=== PATIENT | male | born 1960 | race African-American/Black ===

== ENCOUNTER 2022-11-03 13:14 | Emergency (ER) | payer MEDICAID, MEDICARE ==
[~2022-11-03] VITALS: Ht 170.2 cm; Wt 99.8 kg
[2022-11-03 13:35] VITALS: BP 156/92
--- NOTE | 2022-11-03 14:15 | NUR ---
pt seen by dr hunter for eval
--- NOTE | 2022-11-03 14:43 | NUR ---
[facility] CALLED FOR TRANSPORT, ETA 60 MIN PER SHAE.
--- NOTE | 2022-11-03 15:35 | NUR ---
[facility] [place] TELEPHONE NUMBER [phone]
--- NOTE | 2022-11-03 15:40 | NUR ---
called ariella bob for report but no response
--- NOTE | 2022-11-03 15:48 | NUR ---
Patient discharged to [facility] via [place] in stable condition, accompanied by 2 foundry metallurgist. Written and verbal after care instructions given. Patient verbalizes understanding of instruction.
== END 2022-11-03 15:50 ==
LOC: ER 13:18
DX: H57.89 Other specified disorders of eye and adnexa (principal); I10 Essential (primary) hypertension; J44.9 Chronic obstructive pulmonary disease, unspecified; F20.9 Schizophrenia, unspecified; F31.9 Bipolar disorder, unspecified; E78.5 Hyperlipidemia, unspecified; Z88.0 Allergy status to penicillin

== ENCOUNTER 2023-08-12 04:15 | Inpatient (IN) | payer MEDICARE, OTHER ==
[2023-08-12] VITALS (11 sets, daily range): BP systolic 102–158; BP diastolic 67–95; TEMP 97.9–98.8; O2SAT 88–100
[~2023-08-12] VITALS: Ht 170.2 cm; Wt 107.5 kg
[2023-08-12] MEDS ORDERED: ALBUTEROL FS 2.5 MG/0.5 ML VIAL.NEB ONE (04:49)
[2023-08-12] MEDS ORDERED: ALBUTEROL FS 2.5 MG/0.5 ML VIAL.NEB NEB ONE (05:00)
[2023-08-12] MEDS ORDERED: ALBUTEROL FS 2.5 MG/0.5 ML VIAL.NEB NEB PRN (08:30)
[2023-08-12] MEDS ORDERED: MORPHINE SULFATE INJ 2 MG/ML DISP.SYRIN IV PRN (08:30)
[2023-08-12] MEDS ORDERED: ACETAMINOPHEN 325 MG TABLET PO PRN (08:30)
[2023-08-12] MEDS ORDERED: ONDANSETRON HCL/PF 4 MG/2 ML VIAL IVP PRN (08:30)
[2023-08-12] MEDS ORDERED: GLUC1KIT IM (08:47)
[2023-08-12] MEDS ORDERED: MULT-447 PO (08:47)
[2023-08-12] MEDS ORDERED: IPRA0.2S9 INH (08:47)
[2023-08-12] MEDS ORDERED: BENA20TA9 PO (08:47)
[2023-08-12] MEDS ORDERED: AMLO-213 PO (08:47)
[2023-08-12] MEDS ORDERED: FLUT16SP16 (08:47)
[2023-08-12] MEDS ORDERED: ALBU18HF2 INH (08:47)
[2023-08-12] MEDS ORDERED: AMAN100C16 PO (08:47)
[2023-08-12] MEDS ORDERED: METF-440 PO (08:47)
[2023-08-12] MEDS ORDERED: ATOR10TA PO (08:47)
[2023-08-12] MEDS ORDERED: HYDR-4076 PO (08:47)
[2023-08-12] MEDS ORDERED: FLUP10TA12 PO (08:47)
[2023-08-12] MEDS ORDERED: POLY15DR40 RIGHTEYE (08:47)
[2023-08-12 09:24] LABS: BASOPHILS % (AUTO) 0.2 % (0.0-2.0); EOSINOPHILS # (AUTO) 0.2 K/uL (0.0-0.7); HEMATOCRIT 44 % (39-51); HEMOGLOBIN 13.4 g/dL (13.5-17.5); LYMPHOCYTES # (AUTO) 1.1 K/uL (0.8-4.8); LYMPHOCYTES % (AUTO) 16.4 % (20.0-44.0); MEAN CORPUSCULAR HEMOGLOBIN 24 PG (26.0-33.0); MEAN CORPUSCULAR HGB CONC 31 g/dl (31.0-36.0); MEAN CORPUSCULAR VOLUME 78 fL (80-96); MONOCYTES # (AUTO) 0.4 K/uL (0.1-1.30); MONOCYTES % (AUTO) 5.5 % (2.0-12.0); NEUTROPHILS % (AUTO) 74.9 % (43.0-81.0); PLATELET COUNT (AUTO) 168 K/uL (150-450); RED BLOOD CELL COUNT(AUTO) 5.57 MIL/uL (4.5-6.0); RED CELL DISTRIBUTION WIDTH 20.1 % (11.5-15.0); WHITE BLOOD COUNT (AUTO) 6.6 K/uL (4.3-11.0)
[2023-08-12 09:47] LABS: ALANINE AMINOTRANSFERASE 20 U/L (12-78); ALBUMIN 3.6 g/dL (3.4-5.0); ALKALINE PHOSPHATASE 79 U/L (46-116); ASPARTATE AMINOTRANSFERASE 14 U/L (15-37); BILIRUBIN,TOTAL 0.2 mg/dL (0.2-1.0); CALCIUM, SERUM 8.7 mg/dL (8.5-10.1); CARBON DIOXIDE 36 mmol/L (21-32); CREATININE 1.2 mg/dL (0.6-1.3); GLUCOSE 140 mg/dL (74-106); TOTAL PROTEIN, SERUM 7.3 g/dL (6.4-8.2); UREA NITROGEN, BLOOD 18 mg/dL (7-18)
[2023-08-12] MEDS ORDERED: MINE3.5O RIGHTEYE (09:57)
[2023-08-12] MEDS ORDERED: OLAN10TA3 PO (09:57)
[2023-08-12] MEDS: methylPREDNISolone SOD SUCC 40 MG/ML VIAL IV SCH ×2 (10:25→15:32)
[2023-08-12] MEDS ORDERED: DEXTROSE 50%-WATER 50 ML DISP.SYRIN IV PRN (10:30)
[2023-08-12] MEDS ORDERED: IPRATROPIUM NEB FS 0.5 MG/2.5 ML AMPUL.NEB ONE (10:39)
[2023-08-12] MEDS: ALBUTEROL FS 2.5 MG/0.5 ML VIAL.NEB NEB SCH ×2 (10:43→20:13)
[2023-08-12] MEDS: IPRATROPIUM NEB FS 0.5 MG/2.5 ML AMPUL.NEB NEB SCH ×2 (10:43→20:13)
[2023-08-12 10:45] LABS: CHLORIDE 103 mmol/L (98-107); SODIUM SERUM 143 mmol/L (136-145)
[2023-08-12] MEDS: BLOOD SUGAR DIAGNOSTIC 1 EACH STRIP IN SCH ×3 (11:08→21:32)
[2023-08-12] MEDS: ENOXAPARIN SODIUM 40 MG/0.4 ML DISP.SYRIN SQ SCH (11:13)
[2023-08-12] MEDS ORDERED: IPRATROPIUM/ALBUTEROL INHALER IH SCH (12:00)
[2023-08-12] MEDS: INSULIN REGULAR, HUMAN 100 UNIT/ML 3 ML VIAL SQ PRN ×3 (13:42→21:37)
[2023-08-12] MEDS: hydrALAZINE HCL 25 MG TABLET PO SCH ×2 (13:50→16:37)
[2023-08-12] MEDS: GUAIFENESIN/D-METHORPHAN HB 5 ML UDC PO PRN ×2 (15:32→23:04)
[2023-08-12] MEDS: BENAZEPRIL HCL 20 MG TABLET PO SCH (16:37)
[2023-08-12] MEDS: FLUPHENAZINE HCL 10 MG TABLET PO SCH (21:30)
[2023-08-12] MEDS: AMANTADINE HCL 100 MG CAPSULE PO SCH (21:30)
[2023-08-12] MEDS: ATORVASTATIN 10 MG TABLET PO SCH (21:30)
[2023-08-12] MEDS: OLANZAPINE 10 MG TABLET PO SCH (21:30)
[2023-08-13] VITALS (14 sets, daily range): BP systolic 142–157; BP diastolic 76–89; TEMP 97.6–98.6; O2SAT 89–95
[2023-08-13] MEDS: methylPREDNISolone SOD SUCC 40 MG/ML VIAL IV SCH ×4 (00:28→21:19)
[2023-08-13] MEDS: ALBUTEROL FS 2.5 MG/0.5 ML VIAL.NEB NEB SCH ×4 (01:07→19:34)
[2023-08-13] MEDS: IPRATROPIUM NEB FS 0.5 MG/2.5 ML AMPUL.NEB NEB SCH ×4 (01:07→19:34)
[2023-08-13] MEDS: GUAIFENESIN/D-METHORPHAN HB 5 ML UDC PO PRN (05:43)
[2023-08-13 05:46] LABS: BASOPHILS % (AUTO) 0.1 % (0.0-2.0); HEMATOCRIT 47 % (39-51); HEMOGLOBIN 14.1 g/dL (13.5-17.5); LYMPHOCYTES # (AUTO) 0.8 K/uL (0.8-4.8); LYMPHOCYTES % (AUTO) 7.6 % (20.0-44.0); MEAN CORPUSCULAR HEMOGLOBIN 24 PG (26.0-33.0); MEAN CORPUSCULAR HGB CONC 30 g/dl (31.0-36.0); MEAN CORPUSCULAR VOLUME 78 fL (80-96); MONOCYTES # (AUTO) 0.3 K/uL (0.1-1.30); NEUTROPHILS # (AUTO) 9.7 K/uL (1.8-8.9); NEUTROPHILS % (AUTO) 89.3 % (43.0-81.0); PLATELET COUNT (AUTO) 186 K/uL (150-450); RED BLOOD CELL COUNT(AUTO) 5.93 MIL/uL (4.5-6.0); RED CELL DISTRIBUTION WIDTH 19.8 % (11.5-15.0); WHITE BLOOD COUNT (AUTO) 10.9 K/uL (4.3-11.0)
[2023-08-13 06:41] LABS: ALBUMIN 3.4 g/dL (3.4-5.0); BILIRUBIN,TOTAL 0.2 mg/dL (0.2-1.0); CALCIUM, SERUM 9.8 mg/dL (8.5-10.1); CREATININE 1.4 mg/dL (0.6-1.3); MAGNESIUM 2.2 mg/dL (1.8-2.4); PHOSPHORUS 2.9 mg/dL (2.5-4.9); TOTAL PROTEIN, SERUM 7.5 g/dL (6.4-8.2)
[2023-08-13] MEDS: BLOOD SUGAR DIAGNOSTIC 1 EACH STRIP IN SCH ×4 (06:53→22:09)
[2023-08-13] MEDS: INSULIN REGULAR, HUMAN 100 UNIT/ML 3 ML VIAL SQ PRN ×4 (06:54→22:12)
[2023-08-13 07:38] LABS: POTASSIUM 4.5 mmol/L (3.5-5.1)
[2023-08-13] MEDS: AMLODIPINE BESYLATE 10 MG TABLET PO SCH (08:25)
[2023-08-13] MEDS: hydrALAZINE HCL 25 MG TABLET PO SCH ×3 (08:25→17:43)
[2023-08-13] MEDS: BENAZEPRIL HCL 20 MG TABLET PO SCH ×2 (08:27→17:43)
[2023-08-13] MEDS: ENOXAPARIN SODIUM 40 MG/0.4 ML DISP.SYRIN SQ SCH (08:28)
[2023-08-13] MEDS: ATORVASTATIN 10 MG TABLET PO SCH (21:19)
[2023-08-13] MEDS: AMANTADINE HCL 100 MG CAPSULE PO SCH (21:22)
[2023-08-13] MEDS: OLANZAPINE 10 MG TABLET PO SCH (21:22)
[2023-08-13] MEDS: FLUPHENAZINE HCL 10 MG TABLET PO SCH (21:23)
[2023-08-14] VITALS (13 sets, daily range): BP systolic 134–156; BP diastolic 80–93; TEMP 97.3–98.4; O2SAT 88–99
[2023-08-14] MEDS: ALBUTEROL FS 2.5 MG/0.5 ML VIAL.NEB NEB SCH ×4 (01:29→19:53)
[2023-08-14] MEDS: IPRATROPIUM NEB FS 0.5 MG/2.5 ML AMPUL.NEB NEB SCH ×4 (01:29→19:53)
[2023-08-14] MEDS: methylPREDNISolone SOD SUCC 40 MG/ML VIAL IV SCH ×4 (03:35→19:05)
[2023-08-14 06:04] LABS: HEMATOCRIT 45 % (39-51); HEMOGLOBIN 13.6 g/dL (13.5-17.5); LYMPHOCYTES # (AUTO) 0.8 K/uL (0.8-4.8); LYMPHOCYTES % (AUTO) 5.6 % (20.0-44.0); MEAN CORPUSCULAR HEMOGLOBIN 24 PG (26.0-33.0); MEAN CORPUSCULAR HGB CONC 30 g/dl (31.0-36.0); MEAN CORPUSCULAR VOLUME 78 fL (80-96); MONOCYTES # (AUTO) 0.6 K/uL (0.1-1.30); NEUTROPHILS # (AUTO) 12.9 K/uL (1.8-8.9); NEUTROPHILS % (AUTO) 90.4 % (43.0-81.0); PLATELET COUNT (AUTO) 185 K/uL (150-450); RED BLOOD CELL COUNT(AUTO) 5.74 MIL/uL (4.5-6.0); RED CELL DISTRIBUTION WIDTH 19.8 % (11.5-15.0); WHITE BLOOD COUNT (AUTO) 14.3 K/uL (4.3-11.0)
[2023-08-14 06:23] LABS: CALCIUM, SERUM 9.2 mg/dL (8.5-10.1); CREATININE 1.2 mg/dL (0.6-1.3); MAGNESIUM 2.4 mg/dL (1.8-2.4); PHOSPHORUS 3.9 mg/dL (2.5-4.9); POTASSIUM 4.8 mmol/L (3.5-5.1)
[2023-08-14] MEDS: GUAIFENESIN/D-METHORPHAN HB 5 ML UDC PO PRN (06:45)
[2023-08-14] MEDS: BLOOD SUGAR DIAGNOSTIC 1 EACH STRIP IN SCH ×4 (06:45→22:05)
[2023-08-14] MEDS: INSULIN REGULAR, HUMAN 100 UNIT/ML 3 ML VIAL SQ PRN ×4 (06:49→22:08)
[2023-08-14] MEDS: BENAZEPRIL HCL 20 MG TABLET PO SCH ×2 (09:58→17:46)
[2023-08-14] MEDS: hydrALAZINE HCL 25 MG TABLET PO SCH ×3 (09:58→17:46)
[2023-08-14] MEDS: AMLODIPINE BESYLATE 10 MG TABLET PO SCH (09:59)
[2023-08-14] MEDS: ENOXAPARIN SODIUM 40 MG/0.4 ML DISP.SYRIN SQ SCH (10:01)
[2023-08-14] MEDS: AMANTADINE HCL 100 MG CAPSULE PO SCH (21:57)
[2023-08-14] MEDS: OLANZAPINE 10 MG TABLET PO SCH (21:57)
[2023-08-14] MEDS: ATORVASTATIN 10 MG TABLET PO SCH (21:57)
[2023-08-14] MEDS: FLUPHENAZINE HCL 10 MG TABLET PO SCH (21:57)
[2023-08-15] VITALS (12 sets, daily range): BP systolic 136–170; BP diastolic 56–102; TEMP 97.5–98.2; O2SAT 88–98
[2023-08-15] MEDS: ALBUTEROL FS 2.5 MG/0.5 ML VIAL.NEB NEB SCH ×4 (01:30→20:10)
[2023-08-15] MEDS: IPRATROPIUM NEB FS 0.5 MG/2.5 ML AMPUL.NEB NEB SCH ×4 (01:30→20:10)
[2023-08-15] MEDS: methylPREDNISolone SOD SUCC 40 MG/ML VIAL IV SCH ×3 (02:39→19:31)
[2023-08-15] MEDS: BLOOD SUGAR DIAGNOSTIC 1 EACH STRIP IN SCH ×5 (06:32→21:46)
[2023-08-15] MEDS: INSULIN REGULAR, HUMAN 100 UNIT/ML 3 ML VIAL SQ PRN ×5 (06:38→21:49)
[2023-08-15] MEDS: BENAZEPRIL HCL 20 MG TABLET PO SCH ×2 (09:20→17:45)
[2023-08-15] MEDS: hydrALAZINE HCL 25 MG TABLET PO SCH ×3 (09:20→16:02)
[2023-08-15] MEDS: AMLODIPINE BESYLATE 10 MG TABLET PO SCH (09:20)
[2023-08-15] MEDS: ENOXAPARIN SODIUM 40 MG/0.4 ML DISP.SYRIN SQ SCH (09:21)
[2023-08-15] MEDS: LEVOFLOXACIN (250MG) 250 MG TABLET PO SCH (13:14)
[2023-08-15] MEDS: ATORVASTATIN 10 MG TABLET PO SCH (21:38)
[2023-08-15] MEDS: FLUPHENAZINE HCL 10 MG TABLET PO SCH (21:38)
[2023-08-15] MEDS: OLANZAPINE 10 MG TABLET PO SCH (21:38)
[2023-08-15] MEDS: AMANTADINE HCL 100 MG CAPSULE PO SCH (21:38)
[2023-08-16] VITALS (12 sets, daily range): BP systolic 137–158; BP diastolic 73–96; TEMP 97–99.9; O2SAT 89–97
[2023-08-16] MEDS: ALBUTEROL FS 2.5 MG/0.5 ML VIAL.NEB NEB SCH ×3 (02:06→12:36)
[2023-08-16] MEDS: IPRATROPIUM NEB FS 0.5 MG/2.5 ML AMPUL.NEB NEB SCH ×3 (02:06→12:36)
[2023-08-16] MEDS: methylPREDNISolone SOD SUCC 40 MG/ML VIAL IV SCH (02:54)
[2023-08-16] MEDS: BLOOD SUGAR DIAGNOSTIC 1 EACH STRIP IN SCH ×3 (06:41→17:11)
[2023-08-16] MEDS: INSULIN REGULAR, HUMAN 100 UNIT/ML 3 ML VIAL SQ PRN ×3 (06:42→17:13)
[2023-08-16] MEDS: BENAZEPRIL HCL 20 MG TABLET PO SCH ×2 (08:22→17:11)
[2023-08-16] MEDS: hydrALAZINE HCL 25 MG TABLET PO SCH ×3 (08:22→17:11)
[2023-08-16] MEDS: AMLODIPINE BESYLATE 10 MG TABLET PO SCH (08:22)
[2023-08-16] MEDS: ENOXAPARIN SODIUM 40 MG/0.4 ML DISP.SYRIN SQ SCH (08:23)
[2023-08-16] MEDS: LEVOFLOXACIN (250MG) 250 MG TABLET PO SCH (12:09)
[2023-08-16] MEDS ORDERED: PRED50TA PO (12:25)
[2023-08-16] MEDS ORDERED: LEVO250T59 PO (12:25)
[2023-08-16] MEDS ORDERED: HYDR-4076 PO (12:25)
== END 2023-08-16 18:48 | DRG 190 ==
LOC: ER 04:41 → TELE 08:47
PROVIDERS: ADMIT Internal Medicine; ATTEND Internal Medicine
DX: J44.1 Chronic obstructive pulmonary disease with (acute) exacerbation (principal); J96.01 Acute respiratory failure with hypoxia; N17.9 Acute kidney failure, unspecified; D64.9 Anemia, unspecified; H54.61 Unqualified visual loss, right eye, normal vision left eye; H91.90 Unspecified hearing loss, unspecified ear; F17.210 Nicotine dependence, cigarettes, uncomplicated; G24.01 Drug induced subacute dyskinesia; G47.33 Obstructive sleep apnea (adult) (pediatric); F25.9 Schizoaffective disorder, unspecified; F31.9 Bipolar disorder, unspecified; E78.5 Hyperlipidemia, unspecified; Z88.0 Allergy status to penicillin; Z98.890 Other specified postprocedural states; Z85.22 Personal history of malignant neoplasm of nasal cavities, middle ear, and accessory sinuses; E66.9 Obesity, unspecified; Z68.37 Body mass index [BMI] 37.0-37.9, adult; I12.9 Hypertensive chronic kidney disease with stage 1 through stage 4 chronic kidney disease, or unspecified chronic kidney disease; E11.22 Type 2 diabetes mellitus with diabetic chronic kidney disease; N18.9 Chronic kidney disease, unspecified; Z79.4 Long term (current) use of insulin; Z79.84 Long term (current) use of oral hypoglycemic drugs; Z79.51 Long term (current) use of inhaled steroids; Z79.899 Other long term (current) drug therapy
CPT/HCPCS: 36415; 71045-TC; 71250-TC; 76770-TC; 80048-TC; 80053-TC; 82962-TC; 83605-TC; 83735-TC; 83970; 84100-TC; 85025-TC; 87081-TC; 94799-TC; G0378; J1650; J1815; J2270; J2920; J7030

== ENCOUNTER 2024-07-30 20:30 | Inpatient (IN) | payer MEDICARE, OTHER ==
[~2024-07-30] VITALS: Ht 172.7 cm; Wt 86.6 kg
[~2024-07-30 20:30] MED LIST: ALBU18HF2 INH; AMAN100C16 PO; AMLO-213 PO; ATOR10TA PO; BENA20TA9 PO; FLUP10TA12 PO; FLUT16SP16; GLUC1KIT IM; HYDR-4076 PO; IPRA0.2S9 INH; LEVO250T59 PO; METF-440 PO; MINE3.5O RIGHTEYE; MULT-447 PO; OLAN10TA3 PO; POLY15DR40 RIGHTEYE; PRED50TA PO
--- NOTE | 2024-07-30 21:23 | NUR ---
BIBPA FOR WEAKNESS AND BODY PAIN, placed to bed and hooked into a monitor
--- NOTE | 2024-07-30 21:40 | NUR ---
IV inserted R AC G18, blood drawn sent to lab
--- NOTE | 2024-07-30 21:50 | NUR ---
gear technician at bedside
[2024-07-30 22:15] LABS: BASOPHILS % (AUTO) 0.4 % (0.0-2.0); EOSINOPHILS # (AUTO) 0.2 K/uL (0.0-0.7); HEMATOCRIT 41 % (39-51); HEMOGLOBIN 13.2 g/dL (13.5-17.5); LYMPHOCYTES # (AUTO) 2.4 K/uL (0.8-4.8); LYMPHOCYTES % (AUTO) 40.8 % (20.0-44.0); MEAN CORPUSCULAR HEMOGLOBIN 23 PG (26.0-33.0); MEAN CORPUSCULAR HGB CONC 32 g/dl (31.0-36.0); MEAN CORPUSCULAR VOLUME 73 fL (80-96); MONOCYTES # (AUTO) 0.5 K/uL (0.1-1.30); MONOCYTES % (AUTO) 8.7 % (2.0-12.0); NEUTROPHILS # (AUTO) 2.7 K/uL (1.8-8.9); NEUTROPHILS % (AUTO) 46.1 % (43.0-81.0); PLATELET COUNT (AUTO) 175 K/uL (150-450); RED BLOOD CELL COUNT(AUTO) 5.65 MIL/uL (4.5-6.0); RED CELL DISTRIBUTION WIDTH 21.4 % (11.5-15.0); WHITE BLOOD COUNT (AUTO) 5.8 K/uL (4.3-11.0)
[2024-07-30 22:30] LABS: CALCIUM, SERUM 9.5 mg/dL (8.5-10.1); CARBON DIOXIDE 33 mmol/L (21-32); CHLORIDE 106 mmol/L (98-107); CREATININE 1.2 mg/dL (0.6-1.3); GLUCOSE 83 mg/dL (74-106); POTASSIUM 3.8 mmol/L (3.5-5.1); SODIUM SERUM 146 mmol/L (136-145); UREA NITROGEN, BLOOD 21 mg/dL (7-18)
[2024-07-30 22:36] LABS: ALANINE AMINOTRANSFERASE 20 U/L (12-78); ALBUMIN 3.4 g/dL (3.4-5.0); ALKALINE PHOSPHATASE 70 U/L (46-116); ASPARTATE AMINOTRANSFERASE 9 U/L (15-37); BILIRUBIN,DIRECT 0.1 mg/dL (0.0-0.2); BILIRUBIN,TOTAL 0.3 mg/dL (0.2-1.0); LIPASE 23 U/L (16-77); TOTAL PROTEIN, SERUM 7.5 g/dL (6.4-8.2)
--- NOTE | 2024-07-30 23:48 | NUR ---
URINE SPECIMEN COLLECTED SENT TO LAB
[2024-07-31] VITALS (11 sets, daily range): BP systolic 100–158; BP diastolic 53–92; TEMP 97.2–98.5; O2SAT 95–100
[2024-07-31 00:22] LABS: APPEARANCE,URINE CLEAR (CLEAR); BILIRUBIN,URINE NEGATIVE (NEGATIVE); BLOOD, URINE NEGATIVE Ery/uL (NEGATIVE); COLOR,URINE YELLOW (YELLOW); KETONES,URINE NEGATIVE (NEGATIVE); LEUKOCYTE ESTERASE ,URINE NEGATIVE (NEGATIVE); NITRITE, URINE NEGATIVE (NEGATIVE); PROTEIN,URINE 1+ mg/dl (NEGATIVE); UGLUCOSE NEGATIVE (NEGATIVE); UROBILINOGEN,URINE 0.2 EU/dL (0.2)
[2024-07-31 00:24] LABS: ADD URINE CULTURE NO; BACTERIA,URINE Rare /HPF (None Seen); RBC,URINE 0-2 /HPF (0-2); SQUAMOUS EPITHELIAL CELL,UR Few /HPF (None Seen); WBC,URINE 0-2 /HPF (0-3)
--- NOTE | 2024-07-31 01:13 | NUR ---
RT at bedside
[2024-07-31] MEDS ORDERED: DEXTROSE 50%-WATER 50 ML DISP.SYRIN IV PRN (02:00)
[2024-07-31] MEDS ORDERED: Z GUARD REMEDY 4 OZ OINT TP PRN (02:00)
[2024-07-31] MEDS: methylPREDNISolone SOD SUCC 125 MG/2ML VIAL IV ONE (02:00)
[2024-07-31] MEDS ORDERED: ONDANSETRON HCL/PF 4 MG/2 ML VIAL IVP PRN (02:00)
[2024-07-31] MEDS ORDERED: MAG HYDROX/AL HYDROX/SIMETH 30 ML UDC PO PRN (02:00)
[2024-07-31] MEDS ORDERED: ACETAMINOPHEN 325 MG TABLET PO PRN (02:00)
[2024-07-31] MEDS ORDERED: MAGNESIUM HYDROXIDE 30 ML UDC PO PRN (02:00)
[2024-07-31] MEDS ORDERED: methylPREDNISolone SOD SUCC 125 MG/2ML VIAL ONE (02:08)
[2024-07-31] MEDS: ALBUTEROL FS 2.5 MG/3 ML VIAL.NEB NEB ONE (02:25)
[2024-07-31] MEDS ORDERED: ALBUTEROL FS 2.5 MG/3 ML VIAL.NEB NEB PRN (02:30)
[2024-07-31] MEDS ORDERED: ALBUTEROL FS 2.5 MG/3 ML VIAL.NEB ONE (02:36)
--- NOTE | 2024-07-31 02:45 | NUR ---
0245 Report received from ER nurse Fabi for transfer of care with questions answered.
--- NOTE | 2024-07-31 02:47 | NUR ---
REPORT GIVEN TO NIRAJ GARNER
--- NOTE | 2024-07-31 02:55 | NUR ---
TRANSFERRED PATIENT TO ROOM 116-1
--- NOTE | 2024-07-31 03:00 | NUR ---
E[employer]ANS TOP HELPEREXTRACORPOREAL TECHNICIAN NOTE PT IS A 64 YEAR OLD MALE WITH A CHIEF DIAGNOSIS OF COPD, PT IS RECEIVED VIA GURNEY WITH 2 ER NURSES; PT IS A/OX 1-2 KNOWS HIS NAME BUT IS UNAWARE OF WHERE HE IS OR WHY HE IS IN THE HOSPITAL. PT IS ON ON TELE MONITORING WITH A READING OF SINUS NANO WITH A PULSE RANGING IN THE 50'S. SKIN ASSESSMENT IS COMPLETED; NO WOUNDS NOTED. PT HAS IV ACCESS ON THE RIGHT AC SALINE LOCKED FLUSHING WELL WITH NO SIGNS OF DISLODGEMENT. ALL PAPER WORK CHARTED WITH ALL BELONGINGS CHARTED IN THE BELONGINGS CHART. ALL SAFETY MEASURES IN PLACE, BED IS LOCKED, ON THE LOWEST POSITION, WITH CALL LIGHT AND BEDSIDE TABLE WITHIN EASY REACH. PLAN OF CARE ONGOING.
[2024-07-31] MEDS: IV D5W 1,000 ML IV SCH (03:13)
[2024-07-31] MEDS ORDERED: IPRATROPIUM NEB FS 0.5 MG/2.5 ML AMPUL.NEB INH SCH (05:00)
[2024-07-31 05:27] LABS: ABG BASE EXCESS 5.6 mmol/L (-2.0-3.0); ABG OXYGEN SATURATION 91.6 % (94.0-98.0); ABG PH 7.397 (7.350-7.450); ABG PO2 64.8 mmHg (83.0-108.0); ABG TOTAL HEMOGLOBIN 13.7 G/dL (13.5-17.5); COHb 2.4 % (0.5-1.5); MetHb 0.2 % (0.0-1.5); O2Hb 89.2 % (94.0-97.0); SITE, ABG Right Radial; VENT MODE, BG ROOM AIR
[2024-07-31] MEDS ORDERED: POLYVINYL ALCOHOL 15 ML BOTTLE OP PRN (06:00)
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
[2024-07-31] MEDS: OLANZAPINE 10 MG VIAL IM ONE (07:01)
--- NOTE | 2024-07-31 07:25 | NUR ---
RN CLOSING NOTE PT IN BED RESTING; AFTER ADMINISTERING ZYPREXA ONE TIME. PT IS COMBATIVE, AND LASHING OUT AT STAFF. ALL NEEDS MET WITH ALL MEDICATIONS GIVEN. PT HAS IV ACCESS ON THE LEFT WRIST #22G RUNNING D5 AT 75 ML/HR. PT IS ON ROOM AIR SATURATING AT 97%. WILL GIVE REPORT TO AM NURSE FOR ONGOING CARE.
[2024-07-31] MEDS: BLOOD SUGAR DIAGNOSTIC 1 EACH STRIP IN SCH (07:30)
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
[2024-07-31] MEDS: BENAZEPRIL HCL 20 MG TABLET PO SCH (08:08)
[2024-07-31] MEDS: AMLODIPINE BESYLATE 10 MG TABLET PO SCH (08:09)
[2024-07-31] MEDS: hydrALAZINE HCL 25 MG TABLET PO SCH (08:09)
[2024-07-31] MEDS: MULTIVIT W/MINERALS 1 TAB TABLET PO SCH (08:09)
[2024-07-31] MEDS: FLUTICASONE PROPIONATE 16 GM BOTTLE NS SCH (09:00)
[2024-07-31] MEDS ORDERED: BENZ1TAB7 PO (09:03)
[2024-07-31] MEDS ORDERED: LATA7.5D EACHEYE (09:03)
[2024-07-31] MEDS ORDERED: LEVE750T10 PO (09:03)
[2024-07-31] MEDS ORDERED: ACET325T53 PO (09:03)
[2024-07-31] MEDS ORDERED: VALP250S3 PO (09:03)
[2024-07-31] MEDS ORDERED: INSU100V39 SQ (09:03)
[2024-07-31] MEDS ORDERED: OLAN7.5T3 PO (09:03)
[2024-07-31] MEDS ORDERED: IPRA3AMP23 IH (09:03)
[2024-07-31] MEDS ORDERED: MAGN400O6 PO (09:03)
[2024-07-31] MEDS ORDERED: SUCR1ORA15 PO (09:03)
[2024-07-31] MEDS ORDERED: BUDE0.5A4 IH (09:03)
[2024-07-31] MEDS ORDERED: ASCO500T21 PO (09:03)
[2024-07-31] MEDS ORDERED: LANS30CA56 PO (09:03)
[2024-07-31] MEDS ORDERED: ALBU2.5V13 IH (09:03)
[2024-07-31] MEDS ORDERED: ASPI-1420 PO (09:03)
[2024-07-31] MEDS ORDERED: CARV25TA2 PO (09:03)
--- NOTE | 2024-07-31 09:15 | NUR ---
TIRE TECHNICIAN NOTE Patient refused to have blood drawn MD was notified. Patient also refused nasal spray and blood sugar check, risk and benefits explained x3 patient still refused. MD was notified.
[2024-07-31] MEDS: ENOXAPARIN SODIUM 40 MG/0.4 ML DISP.SYRIN SQ SCH (11:18)
[2024-07-31] MEDS: methylPREDNISolone SOD SUCC 125 MG/2ML VIAL IV SCH (11:19)
[2024-07-31] MEDS: IPRATROPIUM NEB FS 0.5 MG/2.5 ML AMPUL.NEB NEB SCH (11:40)
[2024-07-31] MEDS: ALBUTEROL FS 2.5 MG/3 ML VIAL.NEB NEB SCH (11:40)
--- NOTE | 2024-07-31 12:00 | NUR ---
INTERNATIONAL PROJECT MANAGER NOTE Patient is in bed with zero s/s of distress noted, he has had all of his needs met no changes noted in his condition Patient noted with decreased aggression allowed 1200 medications and BS.
[2024-07-31] MEDS: INSULIN REGULAR, HUMAN 100 UNIT/ML 3 ML VIAL SQ PRN (12:46)
--- NOTE | 2024-07-31 13:03 | NUR ---
NEWSPAPER STUFFER NOTE Patient is in bed with zero s/s of distress noted. He has had all of his needs met no changes noted in his condition. Current needs have been met. Endorsed to Nurse Garcia for continuation of care.
--- NOTE | 2024-07-31 18:32 | NUR ---
LOG HOOKER CLOSING NOTES All due meds and tx given as ordered. Pt tolerated everything well. All needs attended to. 1:1 sitter at bedside at all times. HOB elevated to pts comfort. Siderails up at all time x3. Bed locked and at its lowest height for safety. Call light wihtin reach. Will endorse to oncoming nurse.
[2024-07-31] MEDS: IV D5W 1,000 ML IV PRN (18:52)
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
[2024-07-31] MEDS: OLANZAPINE 10 MG TABLET PO SCH (21:12)
[2024-07-31] MEDS: FLUPHENAZINE HCL 10 MG TABLET PO SCH (21:12)
[2024-07-31] MEDS: AMANTADINE HCL 100 MG CAPSULE PO SCH (21:12)
[2024-07-31] MEDS: ATORVASTATIN 10 MG TABLET PO SCH (21:12)
[2024-08-01] VITALS (14 sets, daily range): BP systolic 127–183; BP diastolic 88–100; TEMP 97.8–98.6; O2SAT 95–100
--- NOTE | 2024-08-01 04:43 | NUR ---
RN NOTE NEW ORDER FOR ARIVAN 1MG IM ONCE DUE TO PATIENT YELLING AND THRASHING AT STAFF. CONTACTED BRIDGETTE LYONS NP FOR ORDER, PLAN OF CARE ONGOING.
--- NOTE | 2024-08-01 04:45 | NUR ---
RN NOTE UNABLE TO OBTAIN 0400 VITALS DUE TO PATIENT THRASHING AND HITTING STAFF.
[2024-08-01] MEDS: LORAZEPAM INJ 2 MG/ML VIAL IM ONE (04:50)
[2024-08-01 06:13] LABS: BASOPHILS % (AUTO) 0.1 % (0.0-2.0); HEMATOCRIT 44 % (39-51); HEMOGLOBIN 13.5 g/dL (13.5-17.5); LYMPHOCYTES # (AUTO) 1.3 K/uL (0.8-4.8); LYMPHOCYTES % (AUTO) 8.7 % (20.0-44.0); MEAN CORPUSCULAR HEMOGLOBIN 22 PG (26.0-33.0); MEAN CORPUSCULAR HGB CONC 31 g/dl (31.0-36.0); MEAN CORPUSCULAR VOLUME 73 fL (80-96); MONOCYTES # (AUTO) 0.6 K/uL (0.1-1.30); MONOCYTES % (AUTO) 4.3 % (2.0-12.0); NEUTROPHILS # (AUTO) 12.9 K/uL (1.8-8.9); NEUTROPHILS % (AUTO) 86.9 % (43.0-81.0); PLATELET COUNT (AUTO) 187 K/uL (150-450); RED BLOOD CELL COUNT(AUTO) 6.03 MIL/uL (4.5-6.0); RED CELL DISTRIBUTION WIDTH 21.5 % (11.5-15.0); WHITE BLOOD COUNT (AUTO) 14.9 K/uL (4.3-11.0)
[2024-08-01 06:43] LABS: CALCIUM, SERUM 9.7 mg/dL (8.5-10.1); CREATININE 1.1 mg/dL (0.6-1.3); POTASSIUM 3.3 mmol/L (3.5-5.1)
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
--- NOTE | 2024-08-01 07:55 | NUR ---
RN OPENING NOTES PT IS IN BED, ASLEEP, A/OX1, VERY CONFUSED AND AGITATED. ON SOFT BILATERAL WRIST RESTRAINTS, NO REDNESS, NOR SKIN BREAKDOWN NOTED. ON RA, TOLERATING WELL. ON TELE READING SR. IV ON L WRIST, 22G, D5W RUNNING @ 75ML/HR. PUREWICK IS ON, DRAINING URINE VIA SUCTION. SAFETY MEASURES IN PLACE: BED AT LOWEST AND LOCKED POSITION, HOB ELEVATED, SIDE RAILS X3, CALL LIGHT AND TABLE WITHIN REACH. WILL CONTINUE POC.
[2024-08-01 08:06] LABS: ANISOCYTOSIS 2+; BAND % (MANUAL) 1 % (0.0-5.0); BASOPHILS % (MANUAL) 0 % (0.0-2.0); EOSINOPHILS % (MANUAL) 0 % (0-4); LYMPHOCYTES % (MANUAL) 12 % (16-48); MONOCYTES % (MANUAL) 4 % (0-11.0); NEUTROPHILS % (MANUAL) 83 (42-76); PLATELET ESTIMATE ADEQUATE
[2024-08-01] MEDS: QUETIAPINE FUMARATE 25 MG TABLET PO PRN (10:43)
[2024-08-01] MEDS: POTASSIUM CHLORIDE 20 MEQ TAB.PRT.SR PO ONE (12:32)
[2024-08-01] MEDS: VALPROIC ACID 250 MG/5 ML UDC PO SCH (12:32)
[2024-08-01] MEDS: OLANZAPINE ZYDIS 5 MG TAB.RAPDIS PO SCH (17:12)
--- NOTE | 2024-08-01 19:34 | NUR ---
RN CLOSING NOTES PT IS IN BED, AWAKE A/OX1, VERY CONFUSED AND AGITATED. ON SOFT BILATERAL WRIST RESTRAINTS, NO REDNESS, NOR SKIN BREAKDOWN NOTED. ON RA, TOLERATING WELL. ON TELE READING ST. IV ON L WRIST, 22G, D5W RUNNING @ 75ML/HR. PUREWICK IS ON, DRAINING URINE VIA SUCTION. ALL MEDS GIVEN, ALL PTS NEEDS MET, AND PT IS CLEANED AND CHANGED. SAFETY MEASURES IN PLACE: BED AT LOWEST AND LOCKED POSITION, HOB ELEVATED, SIDE RAILS X3, CALL LIGHT AND TABLE WITHIN REACH. WILL ENDORSE POC. Addendum: 08/01/24 at 1946 by JOLIE AUGUSTE RN INCORRECT SITE FOR IV
--- NOTE | 2024-08-01 19:46 | NUR ---
RN CLOSING NOTES PT IS IN BED, AWAKE A/OX1, VERY CONFUSED AND AGITATED. ON SOFT BILATERAL WRIST RESTRAINTS, NO REDNESS, NOR SKIN BREAKDOWN NOTED. ON RA, TOLERATING WELL. ON TELE READING ST. IV ON RFA, 18G, D5W RUNNING @ 75ML/HR. PUREWICK IS ON, DRAINING URINE VIA SUCTION. ALL MEDS GIVEN, ALL PTS NEEDS MET, AND PT IS CLEANED AND CHANGED. SAFETY MEASURES IN PLACE: BED AT LOWEST AND LOCKED POSITION, HOB ELEVATED, SIDE RAILS X3, CALL LIGHT AND TABLE WITHIN REACH. WILL ENDORSE POC.
--- NOTE | 2024-08-01 19:50 | NUR ---
RN OPENING NOTE RECEIVED PATIENT RESTING IN BED, A/OX1, CONFUSED AND AGITATED. ON ROOM AIR, TOLERATING WELL, SATURATING AT 99%. ON TELE MONITORING READING SINUS RHYTHM. ON SOFT BILATERAL WRIST RESTRAINTS, WITH GOOD SKIN CONDITION AND CIRCULATION. IV ACCESS ON LEFT WRIST, 22G WITH D5W RUNNING AT 75ML/HR, INTACT, PATENT AND INFUSING WELL. WITH 1:[address], DRAINING URINE VIA SUCTION WALL. SAFETY MEASURES IN PLACE, BED IN LOWEST POSITION AND LOCKED, BED ALARM ON, SIDE RAILS UP X4, CALL LIGHT WITHIN EASY REACH. WILL CONTINUE TO MONITOR. PLAN OF CARE ONGOING.
[2024-08-01] MEDS: QUETIAPINE FUMARATE 100 MG TABLET PO SCH (21:09)
--- NOTE | 2024-08-01 22:00 | NUR ---
RN NOTE PATIENT REFUSED TO HAVE HIS BLOOD SUGAR CHECKED. HE'S SCREAMING, KICKING AND AGITATED. CHARGE NURSE ALLEN ROSA.
[2024-08-02] VITALS (8 sets, daily range): BP systolic 90–154; BP diastolic 50–110; TEMP 97.5–98.4; O2SAT 95–100
--- NOTE | 2024-08-02 02:48 | NUR ---
RN NOTE PATIENT IS AGITATED,SCREAMING, TRYING TO GET OUT OF BED, AND HITTING. NOTIFIED ROWAN FUEL QUALITY TECH WITH NEW ORDERS AND CARRIED OUT. CHARGE NURSE NKECHI ROSA.
[2024-08-02] MEDS: OLANZAPINE 10 MG VIAL IM ONE (02:58)
[2024-08-02 05:53] LABS: BASOPHILS # (AUTO) 0.1 K/uL (0.0-0.2); BASOPHILS % (AUTO) 0.9 % (0.0-2.0); EOSINOPHILS % (AUTO) 0.1 % (0.0-6.0); HEMATOCRIT 44 % (39-51); LYMPHOCYTES # (AUTO) 2.4 K/uL (0.8-4.8); LYMPHOCYTES % (AUTO) 21.2 % (20.0-44.0); MEAN CORPUSCULAR HEMOGLOBIN 23 PG (26.0-33.0); MEAN CORPUSCULAR HGB CONC 32 g/dl (31.0-36.0); MEAN CORPUSCULAR VOLUME 72 fL (80-96); MONOCYTES % (AUTO) 8.9 % (2.0-12.0); NEUTROPHILS # (AUTO) 7.9 K/uL (1.8-8.9); NEUTROPHILS % (AUTO) 68.9 % (43.0-81.0); PLATELET COUNT (AUTO) 177 K/uL (150-450); RED CELL DISTRIBUTION WIDTH 21.1 % (11.5-15.0); WHITE BLOOD COUNT (AUTO) 11.4 K/uL (4.3-11.0)
[2024-08-02 06:06] LABS: CALCIUM, SERUM 8.7 mg/dL (8.5-10.1); POTASSIUM 2.9 mmol/L (3.5-5.1)
--- NOTE | 2024-08-02 06:51 | NUR ---
RN CLOSING NOTE PATIENT RESTING IN BED, A/OX1, CONFUSED AND AGITATED. ON ROOM AIR, TOLERATING WELL, SATURATING AT 99%. ON TELE MONITORING READING SINUS RHYTHM 80s. ON SOFT BILATERAL WRIST RESTRAINTS, WITH GOOD SKIN CONDITION AND CIRCULATION, CHECKED EVERY 2 HOURS. IV ACCESS ON LEFT WRIST, 22G WITH D5W RUNNING AT 75ML/HR, INTACT, PATENT AND INFUSING WELL. WITH 1:[address], DRAINING URINE VIA SUCTION WALL. SAFETY MEASURES IN PLACE, BED IN LOWEST POSITION AND LOCKED, BED ALARM ON, SIDE RAILS UP X4, CALL LIGHT WITHIN EASY REACH. WILL ENDORSE TO MORNING SHIFT RN. PLAN OF CARE ONGOING.
--- NOTE | 2024-08-02 07:40 | NUR ---
RN OPENING NOTE RECEIVED PATIENT IN BED AWAKE, A/O X1 WITH CONFUSION. ON ROOM AIR, TOLERATING WELL. NO RESPIRATORY DISTRESS NOTED. ON TELE MONITORING READING HR=80'S. IV ON RFA #18G INTACT AND PATENT RUNNING D5W @75CC/HR. 1:1 SITTER. SAFETY MEASURES IMPLEMENTED; BED LOCKED, IN LOW POSITION, SR UP, BED ALARM ON, CALL LIGHT AND SIDE TABLE WITHIN EASY REACH. PLAN OF CARE ONGOING.
[2024-08-02] MEDS: methylPREDNISolone SOD SUCC 125 MG/2ML VIAL IV SCH (09:07)
--- NOTE | 2024-08-02 10:27 | NUR ---
RN NOTE INFORMED MD FOR POTASSIUM=2.9 WITH NEW ORDER OF POTASSIUM 40MEQ PO. NOTED AND CARRIED OUT.
[2024-08-02] MEDS: POTASSIUM CHLORIDE 20 MEQ TAB.PRT.SR PO ONE (10:35)
--- NOTE | 2024-08-02 18:47 | NUR ---
RN CLOSING NOTE PATIENT IN BED AWAKE, A/O X1 WITH CONFUSION. ON ROOM AIR, TOLERATING WELL. NO RESPIRATORY DISTRESS NOTED. IV ON RFA #18G INTACT AND PATENT RUNNING D5W @75CC/HR. 1:1 SITTER. SAFETY MEASURES IMPLEMENTED; BED LOCKED, IN LOW POSITION, SR UP, BED ALARM ON, CALL LIGHT AND SIDE TABLE WITHIN EASY REACH. WILL ENDORSE TO NIGHT NURSE FOR CONTINUITY OF CARE.
--- NOTE | 2024-08-02 19:30 | NUR ---
RN OPENING NOTE RECEIVED PATIENT IN BED, ASLEEP BUT EASY TO AROUSE AND RESPONDS TO VERBAL AND TACTILE STIMULI. SITTER AT BEDSIDE. ALERT AND ORIENTED TO SELF WITH CONFUSION. AFEBRILE AND NOT IN ANY FORM OF ACUTE DISTRESS. SATURATING WELL ON ROOM AIR. ON BILATERAL SOFT WRIST RESTRAINTS, NOTED WITH GOOD SKIN CIRCULATION. SAFETY MEASURES IN PLACE. KEPT BED IN LOCKED AND IN LOW POSITION. SIDE RAILS UP X2.
--- NOTE | 2024-08-02 20:25 | NUR ---
pt is combative and non compliant, hhn tx not given. ramesh harper notified.
[2024-08-02] MEDS: QUETIAPINE FUMARATE 100 MG TABLET PO SCH (21:33)
[2024-08-03] VITALS (8 sets, daily range): BP systolic 151–164; BP diastolic 84–106; TEMP 97.3–98.1; O2SAT 94–100
--- NOTE | 2024-08-03 06:17 | NUR ---
MS RN CLOSING NOTE PATIENT IN BED, SLEPT WELL DURING THE NIGHT WITH SITTER AT BEDSIDE. ALERT AND ORIENTED TO SELF WITH CONFUSION AT TIMES BUT MORE COOPERATIVE AND COMPLAINT WITH ORAL MEDICATION EXCEPT FOR THE BREATHING TX AND STILL REFUSING MORNING BLOOD DRAW. AFEBRILE AND NOT IN ANY FORM OF ACUTE DISTRESS. SATURATING WELL ON ROOM AIR. ON BILATERAL SOFT WRIST RESTRAINTS, NOTED WITH GOOD SKIN CIRCULATION. MONITORED FOR ANY S/SX. OF HYPO/HYPERGLYCEMIA. MEDICATED ORDERED. HAD 1 EPISODE OF BM DURING THE SHIFT. SAFETY MEASURES IN PLACE. KEPT BED IN LOCKED AND IN LOW POSITION. SIDE RAILS UP X2. ALL NURSING NEEDS ATTENDED.
--- NOTE | 2024-08-03 07:25 | NUR ---
MS RN OPENING NOTE RECEIVED PATIENT IN BED, ASLEEP, WITH SITTER AT BEDSIDE. ALERT AND ORIENTED TO SELF WITH CONFUSION, UNCOOPERATIVE AT TIMES. NO DISTRESS NOTED. ON ROOM AIR BREATHING EVEN AND UNLABORED, TOLERATING WELL. DENIES ANY PAIN. ON BILATERAL SOFT WRIST RESTRAINTS, NOTED WITH GOOD SKIN CIRCULATION. IV ACCESS ON RFA #18 G RUNNING D5W @75 ML/HR. ACCUCHECK DONE RESULT 91, NO NEED FOR COVERAGE. ON PUREWICK CONNECTED VIA CONTINUOUS SUCTION DRAINING YELLOW URINE. FALL SAFETY MEASURES IN PLACE, KEPT BED IN LOCKED AND IN LOW POSITION, SIDE RAILS UP X2, CALL LIGHT WITHIN REACH. PLAN OF CARE ONGOING.
[2024-08-03] MEDS ORDERED: OLAN5TAB6 PO (12:57)
[2024-08-03] MEDS ORDERED: BENA20TA78 PO (12:57)
[2024-08-03] MEDS ORDERED: ATOR10TA PO (12:57)
[2024-08-03] MEDS ORDERED: HYDR-4076 PO (12:57)
[2024-08-03] MEDS ORDERED: Quetiapine Fumarate PO ×2 (12:57)
--- NOTE | 2024-08-03 14:41 | NUR ---
RN NOTES REPORT GIVEN TO MURTAZA GARNER AT [facility]. PICKUP TIME AT 1530
[2024-08-03] MEDS: OLANZAPINE ZYDIS 5 MG TAB.RAPDIS PO SCH (16:06)
--- NOTE | 2024-08-03 16:13 | NUR ---
ORDNANCE KEEPER NOTES PT DISCHARGE STABLE NO COMPLAINTS, NO DISTRESS NOTED. LEFT VIA GURNEY ACCOMPANIED BY 3 SECURITY TEST ENGINEER. BP IS 151/106, BP MEDS DUE AT 1700 GIVEN PRIOR DISCHARGE, PT ASYMPTOMATIC, DENIES HEADACHE/CHESTPAIN.. SKIN INTACT. ALL BELONGINGS CHECKED AND RECONCILED. HEALTH TEACHINGS REINFORCED. D/C INSTRUCTIONS GIVEN TO EMT. CHARGE NURSE AWARE. IV ACCESS AND ID WRISTBAND REMOVED.
[2024-08-03] MEDS ORDERED: PRED20TA PO (16:51)
== END 2024-08-03 16:10 | DRG 190 ==
LOC: ER 20:32 → TELE1 07-31 02:11 → MEDSG1 08-03 08:00
DX: J44.1 Chronic obstructive pulmonary disease with (acute) exacerbation (principal); G93.41 Metabolic encephalopathy; J96.21 Acute and chronic respiratory failure with hypoxia; J96.22 Acute and chronic respiratory failure with hypercapnia; F20.0 Paranoid schizophrenia; G24.01 Drug induced subacute dyskinesia; H91.93 Unspecified hearing loss, bilateral; H54.61 Unqualified visual loss, right eye, normal vision left eye; F17.210 Nicotine dependence, cigarettes, uncomplicated; G47.33 Obstructive sleep apnea (adult) (pediatric); E78.5 Hyperlipidemia, unspecified; D72.829 Elevated white blood cell count, unspecified; T38.0X5A Adverse effect of glucocorticoids and synthetic analogues, initial encounter; Y92.230 Patient room in hospital as the place of occurrence of the external cause; Z88.0 Allergy status to penicillin; Z79.84 Long term (current) use of oral hypoglycemic drugs; Z79.899 Other long term (current) drug therapy; I10 Essential (primary) hypertension; Z95.818 Presence of other cardiac implants and grafts; E11.9 Type 2 diabetes mellitus without complications; Z78.1 Physical restraint status; Z85.848 Personal history of malignant neoplasm of other parts of nervous tissue
CPT/HCPCS: 36415; 36600; 71045-TC; 80048-TC; 80076-TC; 81001; 82803-TC; 82962-TC; 83605-TC; 83690-TC; 84484-TC; 85025-TC; 87081-TC; 92526; 92611-TC; 94762-TC; 94799-TC; 97110-TC; 97112-TC; 97530-TC; A4223; G0378; J1650; J1815; J2060; J2919; J3490; J7070